=== PATIENT | male | born 1970 | race Caucasian/White ===

== ENCOUNTER 2019-04-10 20:06 | Emergency (ER) | payer BC ==
[2019-04-10] MEDS ORDERED: LIDOCAINE HCL 2% PF 100MG/5ML VIAL IJ ONE (20:15)
--- NOTE | 2019-04-10 20:15 | ED Physician Documentation ---
General Adult - HISTORIAN Historian: patient - HPI Stated Complaint: Laceration to webbing of Rt hand Chief Complaint: Laceration/Recheck/Suture Onset: hours (1) Timing: still present Severity: mild Further Comments: yes (he was cutting his deer with is known knife and cut his right hand web space between thumb and first finger. No loss of sensation. No l oss of ROM) - ROS CONST: no problems - PAST HX Past History: none Allergies/Adverse Reactions: Allergies Allergy/AdvReac Type Severity Reaction Status Date / Time No Known Allergies Allergy Verified 04/10/19 20:14 Home Medications: Ambulatory Orders Medication Instructions Recorded Fluticasone Propionate [Flonase] 2 puff IH DAILY 04/10/19 - SOCIAL HX Smoking History: non-smoker Alcohol Use: none Drug Use: none - FAMILY HX Family History: No - VITAL SIGNS Vital Signs: Vital Signs Temp Pulse Resp BP Pulse Ox 97.6 F 77 16 120/81 97 04/10/19 20:06 04/10/19 20:06 04/10/19 20:06 04/10/19 20:06 04/10/19 20:06 - REVIEWED ASSESSMENTS Nursing Assessment Reviewed: Yes Vitals Reviewed: Yes Procedures Wound Location: upper extremity Wound's Depth, Shape: irregular Wound Explored: no foreign body removed Anesthesia: 2% Lidocaine Wound Repaired With: sutures Suture Size/Type: 4:0 Number of Sutures: 4 Layer Closure?: No ED Results Lab/Radiology - Orders Orders: ED Orders Category Date Time Status Cleanse with NS and Chlorhexid 1T Care 04/10/19 20:36 Ordered Diph,Pertuss(Acell),Tet Vac/Pf [Adacel] Med 04/10/19 20:35 Once 0.5 ml IM .ONCE ONE Lidocaine 2% 20ml Vial [Xylocaine] Med 04/10/19 20:16 Once 20 mg IP NOW ONE Lidocaine HCl/Pf [Lidocaine 2% Vial] Med 04/10/19 20:15 Discontinued 100 mg IJ .STK-MED ONE Neomycin/Bacitracin/Polymyxinb [Triple Antibiotic Med 04/10/19 20:36 Once Ointment] 1 applic TP NOW ONE Sulfamethoxazole/Trimethoprim [Bactrim Ds] Med 04/10/19 20:35 Once 1 each PO NOW ONE General Adult Physical Exam - PHYSICAL EXAM GENERAL APPEARANCE: no distress EENT: eye inspection normal, no signs of dehydration NECK: normal inspection RESPIRATORY: no resp distress, chest non-tender, breath sounds normal CVS: reg rate & rhythm, heart sounds normal ABDOMEN: soft, no distension BACK: normal inspection SKIN: warm/dry, other (3 cm lac on right hand web space between thumb and first finger ) EXTREMITIES: non-tender, normal range of motion, no evidence of injury NEURO: oriented X3 Discharge Clincal Impression: Laceration of hand Qualifiers: Encounter type: initial encounter Foreign body presence: without foreign body Laterality: right Qualified Code(s): S61.411A - Laceration without foreign body of right hand, initial encounter Referrals: Primary Doctor,No [Primary Care Provider] - 2 Days Comments: 1. Bactrim DS take 1 by mouth twice daily x 10 days 2. Have sutures removed 7-10 days (4 sutures) 3. Keep dressing on x 24 hours 4. Clean well with soap and water 5. Return to ER for any increased concerns Condition: Stable Disposition: 01 HOME, SELF-CARE Decision to Admit: NO Date of Decison to Admit: 04/10/19 Decision Time: 20:41
[2019-04-10] MEDS ORDERED: LIDOCAINE HCL 2% MDV 400MG/20ML VIAL IP ONE (20:16)
[2019-04-10] MEDS ORDERED: DIPH,PERTUSS(ACELL),TET VAC/PF 0.5 ML DISP.SYRIN IM ONE (20:35)
[2019-04-10] MEDS ORDERED: SULFAMETHOXAZOLE/TRIMETHOPRIM 800/160MG TAB PO ONE (20:35)
[2019-04-10] MEDS ORDERED: NEOMYCIN/BACITRACIN/POLYMYXINB OINT 15 GM TP ONE (20:36)
[2019-04-10 21:25] VITALS: BP 118/67
== END 2019-04-10 21:10 | disposition home or self-care (01) ==
LOC: ED 20:06
DX: S61.411A Laceration without foreign body of right hand, initial encounter (principal); W26.0XXA Contact with knife, initial encounter; Y93.89 Activity, other specified
CPT/HCPCS: 12001; 90471; 90715; 96372; 99282; 99284; J2001; A9270; J7030